=== PATIENT | male | born 1985 | race Caucasian/White ===

== ENCOUNTER 2017-12-15 10:51 | Emergency (ER) | payer OTHER ==
[~2017-12-15] VITALS: Ht 180.3 cm; Wt 98.0 kg
[2017-12-15] MEDS ORDERED: AUGMENTIN 875-1 EACH PO (11:45)
--- NOTE | 2017-12-15 11:46 | ED GENERAL ADULT ---
History of Present Illness General Chief Complaint: Sore Throat, Dental Pain Stated Complaint: DENTAL PAIN Source: patient Exam Limitations: no limitations Vital Signs & Intake/Output Vital Signs & Intake/Output Vital Signs Date Time Temp Pulse Resp B/P B/P Pulse O2 O2 Flow FiO2 Mean Ox Delivery Rate 12/15 1055 98.9 92 15 146/76 97 Room Air Room Air Allergies Coded Allergies: No Known Allergies (12/15/17) Reconcile Medications Amoxicillin/Potassium Clav (Augmentin 875-125 Tablet) 875 MG-125 MG TABLET 1 TAB PO BID dental abscess Triage Note: PT TO ED FOR C/C OF R SIDED SWELLING / ?ABCESS TO R SIDE OF MOUTH/GUM AREA. STATES TOOTH IS SUPPOSED TO BE TAKEN OUT IN THE FALL. DENIES PAIN. Triage Nurses Notes Reviewed? yes Onset: Gradual Duration: hour(s): Timing: constant HPI: 32-year-old otherwise healthy male presenting for evaluation of questionable dental abscess. Patient states that he has had a broken right lower molar over the past several years. Has needed to have the tooth extracted, but has not followed up with the dentist. Has been seen by [facility] in [place] for multiple previous dental extractions that had been infected with abscess. This morning he noticed mild tenderness with gum swelling at the site, consistent with his prior dental infections. States that he is going to follow-up with his dentist for extraction, but would like to be started on an antibiotic as he knows his dentist will require this prior to the extraction. Denies fevers or purulent drainage. States his pain is mild and has not required any over-the- counter medications for pain relief. Past History Travel History Traveled to [place] past 21 day No Medical History Any Pertinent Medical History? none Neurological: NONE EENT: NONE Cardiovascular: NONE Respiratory: NONE Gastrointestinal: NONE Hepatic: NONE Renal: NONE Musculoskeletal: NONE Psychiatric: NONE Endocrine: NONE Blood Disorders: NONE Cancer(s): NONE HR ASSOCIATE/Reproductive: NONE Surgical History Surgical History: non-contributory Psychosocial History What is your primary language Hungarian Tobacco Use: Quit >30 days ago ETOH Use: denies use Illicit Drug Use: denies illicit drug use Family History Hx Contributory? No Review of Systems Review of Systems Constitutional: Reports: no symptoms. EENTM: Reports: see HPI. Respiratory: Reports: no symptoms. Cardiovascular: Reports: no symptoms. GI: Reports: no symptoms. Genitourinary: Reports: no symptoms. Musculoskeletal: Reports: no symptoms. Skin: Reports: no symptoms. Neurological/Psychological: Reports: no symptoms. Hematologic/Endocrine: Reports: no symptoms. Immunologic/Allergic: Reports: no symptoms. All Other Systems: Reviewed and Negative Physical Exam Physical Exam General Appearance: well developed/nourished, no apparent distress, alert, awake , comfortable Comments: Gen.: Well-nourished, well-developed, no acute distress. Head: Normocephalic, atraumatic. Eyes: Normal inspection bilaterally Ears: Normal inspection bilaterally Nose: Normal inspection Oral cavity: Last right lower molar appears broken with no tooth above the gumline, there is visible to the left below the gumline, with mild gingival swelling, tenderness to palpation with 2 thrust, no visible drainage or fluctuance, no facial or neck edema Neck: Normal inspection Lungs: clear to auscultation bilaterally, normnal breath sounds Heart: regular rate and rhythm Abdomen: soft and non-tender Extremities: Normal inspection Neurologic: alert and oriented x3, steady gait Skin: warm and dry Psychiatric: Normal mood and affect, no apparent delusions or hallucinations, behavior appropriate Core Measures ACS in differential dx? No CVA/TIA Diagnosis: No Sepsis Present: No Sepsis Focused Exam Completed? No Progress Differential Diagnoses I considered the following diagnoses in my evaluation of the patient: [Dental fracture versus gingival abscess versus apical abscess, low concern for Zhou's angina] Plan of Care: Given Rx Augmentin. Offered Rx for pain medications, but declining at this time. States he will use [id number] pain medications if needed. He will follow-up with [facility] in [place] for reevaluation and given strict return precautions. Initial ED EKG: none Departure Departure Disposition: HOME OR SELF CARE Condition: Stable Clinical Impression Primary Impression: Dental abscess Referrals: Clarice Dawn MD (PCP/Family) Additional Instructions: Take Augmentin as prescribed. Use ibuprofen or Tylenol as needed for pain. Follow-up with your dentist for reevaluation. Return to the emergency department for any new or worsening symptoms. Departure Forms: Customer Survey General Discharge Information Prescriptions: Current Visit Scripts Amoxicillin/Potassium Clav (Augmentin 875-125 Tablet) 1 TAB PO BID #20 TAB Critical Care Note Critical Care Note Critical Care Time: non-applicable
== END 2017-12-15 11:49 ==
LOC: ERH 10:51
DX: K04.7 Periapical abscess without sinus (principal)